=== PATIENT | male | born 1950 | race Caucasian/White ===

== ENCOUNTER 2020-04-07 10:30 | Outpatient (RCR) | payer MEDICARE, SELFPAY | END 2020-04-07 12:30 | LOC: CAR 10:30 | PROVIDERS: Family Provider Thoracic Surgery (Cardiothoracic Vascular Surgery); PCP Family Medicine; Referring Provider Thoracic Surgery (Cardiothoracic Vascular Surgery); Visit Provider Thoracic Surgery (Cardiothoracic Vascular Surgery) | DX: Z95.1 Presence of aortocoronary bypass graft (principal) | CPT/HCPCS: 93798 ==